=== PATIENT | female | born 1975 | race Caucasian/White ===

== ENCOUNTER 2018-03-05 13:21 | Outpatient (CLI) | payer MEDICAID | END 2018-03-05 13:22 | disposition home or self-care (01) | LOC: BICULT 13:21 | PROVIDERS: ATTEND Nurse Practitioner Women's Health | DX: R10.2 Pelvic and perineal pain (principal); N83.291 Other ovarian cyst, right side | CPT/HCPCS: 76856 ==

== ENCOUNTER 2019-03-30 08:20 | Day surgery (SDC) | payer BC ==
[2019-03-29 15:53] VITALS: BMI 21.6
--- NOTE | 2019-03-30 07:27 | HP ---
DATE OF PLANNED PROCEDURE: 03/30/2019. PROCEDURE TO BE PERFORMED: Robotic-assisted total laparoscopic hysterectomy with right salpingo-oophorectomy. PREOPERATIVE DIAGNOSES: Menorrhagia, right lower quadrant pain. HISTORY OF PRESENT ILLNESS: Ms. Jenny Garner is a 43-year-old referred by Dr. Noel for heavy painful periods for consult regarding hysterectomy. The patient gives a long history of anemia as well as a history of recovering from alcohol abuse. She recently stopped smoking. She reports heavy painful cycles. She passes clots, has terrible cramps and has gone to the emergency department multiple times on her period because she was worried she would pass out. The patient also complains of intermittent right lower quadrant pain off and on for the last 2 years. She does give history of a right ovarian cyst approximately 2 years ago that was not seen on her most recent exam. She reports using oral contraceptive pills and Depo-Provera in the past for her symptoms and that did not help much. She now requests definitive management with hysterectomy and right salpingo- oophorectomy. PAST MEDICAL HISTORY: ADHD, history of alcohol abuse. PAST SURGICAL HISTORY: Appendectomy, left ovarian cystectomy, tubal ligation. SOCIAL HISTORY: Former smoker, history of alcohol use. No drug use. FAMILY HISTORY: Noncontributory. OBSTETRICAL HISTORY: Significant for one vaginal delivery. GYNECOLOGIC HISTORY: Significant for heavy painful periods once a month. No history of abnormal Pap smear. Treated for Trichomonas recently with a negative repeat testing. REVIEW OF SYSTEMS: Negative except per HPI. MEDICATIONS: 1. Naltrexone 50 mg once a day. 2. Propranolol 10 mg three times a day. 3. Quetiapine 300 mg once daily in the evening. ALLERGIES: NO KNOWN DRUG ALLERGIES. PHYSICAL EXAMINATION: VITAL SIGNS: 5 feet 8 inches, weight 138 pounds, BMI 21, blood pressure 104/60, pulse 70, respiratory rate 18, O2 saturation 98%. GENERAL: No acute distress. Alert and oriented. LUNGS: Nonlabored breathing. HEENT: Grossly normal. ABDOMEN: Soft, nontender. No masses. No hepatosplenomegaly. : Normal external female genitalia. Normal vaginal mucosa. Normal-appearing cervix. Uterus has no masses, it is in normal size, nontender. Adnexa are normal. No masses or tenderness noted. EXTREMITIES: No swelling. MUSCULOSKELETAL: No gross deformity. SKIN: No rash. NEUROLOGIC: Grossly intact. Mental status appropriate, mood and affect. DIAGNOSTIC STUDIES: Endometrial biopsy with no hyperplasia or malignancy. Pelvic ultrasound, uterus is without fibroids or masses. Normal appearing ovaries. Retroverted uterus. ASSESSMENT AND PLAN: Ms. Jenny Garner is a 43-year-old G1 with a long history of menorrhagia and dysmenorrhea who requests definitive management with hysterectomy as well as a right salpingo-oophorectomy for chronic right lower quadrant pain. The patient understands risks and benefits of surgery. She understands risks are to include, but are not limited to, bleeding, infection, damage to intraabdominal organs, possible conversion to laparotomy, possible inability to fully diagnose and treat all conditions at the time of surgery, possible need for future medical and/or surgical management. The patient also understands that with the right salpingo-oophorectomy she may or may not have resolution of her right lower quadrant pain. However, she desires to proceed with removing the ovary on that side. The patient's questions have been answered to her satisfaction. She desires to proceed with the procedure as listed above. We also discussed On-Q pump and Sprix intranasal Toradol for postoperative pain control and she has received information on both of these. Job ID: [id number] MTDD
[2019-03-30] MEDS ORDERED: CeleCOXIB 100 MG CAP ONE (08:44)
[2019-03-30] MEDS ORDERED: Famotidine/PF 20 mg/2ml Vial ONE (08:44)
[2019-03-30] MEDS ORDERED: Gabapentin 300 MG CAP ONE (08:44)
[2019-03-30 09:06] LABS: #Basophils 0.1 thou/uL (0.0-0.2); #Eosinphils 1.4 thou/uL (0.0-0.7); #Monocytes 0.9 thou/uL (0.11-0.59); #Neutrophils 5.7 thou/uL (1.40-6.50); %Basophils 0.6 % (0.0-1.0); %Lymphocytes 19.7 % (21.0-51.0); %Monocytes 9.1 % (0.0-10.0); %Neutrophils 56.7 % (42.0-75.0); Hemoglobin 13.1 g/dL (12.0-16.0); Mean Corpuscular HGB CONC 34.1 g/dL (32.0-36.0); Mean Corpuscular Hemoglobin 29.9 pg (27.0-31.0); Mean Corpuscular Volume 87.5 fL (78.0-98.0); Mean Platelet Volume 8.1 fL (7.4-10.4); Platelet Count 297 thou/uL (130-400); RBC Distribution Width 12.5 % (11.5-14.5); Red Blood Cell (RBC) Count 4.39 mill/uL (4.20-5.40)
[2019-03-30] MEDS ORDERED: Fentanyl 100 MCG/2 ML VIAL ONE ×3 (09:53→13:24)
[2019-03-30] MEDS ORDERED: Bupivacaine HCl 0.5%/Epinephrine 1:200,000/PF 30 ml Vial ONE (09:56)
[2019-03-30] MEDS ORDERED: Promethazine HCl 25 MG/ML VIAL IM PRN ×2 (10:12→12:06)
[2019-03-30] MEDS ORDERED: Promethazine HCl 25 MG/ML VIAL SLOW IVP PRN (10:12)
[2019-03-30] MEDS ORDERED: Ondansetron HCl/PF 4 MG/2 ML Vial IVP PRN (10:12)
[2019-03-30] MEDS ORDERED: Ropivacaine 0.2% 550 ML 750 ML NERVE BLCK SCH (10:30)
[2019-03-30] MEDS ORDERED: Ropivacaine HCl/PF 750 ML in Premix Bag 1 BAG NERVE BLCK SCH (10:45)
[2019-03-30] MEDS ORDERED: metroNIDAZOLE 500 MG/100 ML BAG ONE (11:17)
[2019-03-30] MEDS ORDERED: Bisacodyl 10 MG SUPP PR PRN (12:06)
[2019-03-30] MEDS ORDERED: HYDROcodone/Acetaminophen 5/325 mg Tablet PO PRN (12:06)
[2019-03-30] MEDS ORDERED: diphenhydrAMINE 25 MG CAP PO PRN (12:06)
[2019-03-30] MEDS ORDERED: Ondansetron PF 4 MG/2 ML Vial IVP PRN (12:06)
[2019-03-30] MEDS ORDERED: Zolpidem Tartrate 5 MG TAB PO PRN (12:06)
[2019-03-30] MEDS: Sodium Chloride 0.9% 1,000 ML IV SCH ×2 (14:52→21:50)
--- NOTE | 2019-03-30 15:10 | OP ---
DATE OF PROCEDURE: 03/30/2019 PREOPERATIVE DIAGNOSES: 1. Menorrhagia. 2. Dysmenorrhea. 3. Right lower quadrant pain. POSTOPERATIVE DIAGNOSES: 1. Menorrhagia. 2. Dysmenorrhea. 3. Right lower quadrant pain. PROCEDURES PERFORMED: Robotic-assisted total laparoscopic hysterectomy with right salpingo-oophorectomy. CERTIFIED FRAUD EXAMINER: Ting Coles PA-C COMPLICATIONS: None. ESTIMATED BLOOD LOSS: Less than 25 mL. URINE OUTPUT: Approximately 100 mL. ANESTHESIA: GETA. OPERATIVE FINDINGS: 1. Normal-appearing cervix and vagina. Uterus sounds to 6 cm. Laparoscopic findings with normal-appearing ovaries bilaterally. Absent left fallopian tube. Edematous right fallopian tube. Pelvic adhesions with ovaries adhered to the uterus, pelvic sidewall, and cul-de-sac. 2. Igyc-Ymxv-[id number] findings. 3. Small serosal fibroids. DESCRIPTION OF PROCEDURE: The patient was taken back to the OR with IV fluids running. When she was in the OR, she was placed in dorsal supine position and anesthesia was obtained. Once the patient was asleep, she was placed in low dorsal lithotomy position. The abdomen and vagina were prepped and draped in normal fashion for gynecologic surgery. The patient received Ancef as well as Flagyl IV for intraoperative prophylaxis. The surgeons were gowned and gloved after the patient was prepped and draped and attention was turned to the vagina. A Rosas catheter was placed into the bladder and drained approximately 400 mL of urine. The Yoel syringe was then attached to the tip of the Rosas for bladder manipulation if needed during the case. The cervix was visualized after placing an operative speculum. The anterior lip of the cervix was grasped in the cervix and the uterus was sounded to 6 cm. A [employer] manipulator was assembled with a 6-cm tip and a 3.5 cm cervical cup and placed into the uterus and vagina in normal fashion. After the manipulator was placed, the surgeon's gloves were changed and attention was turned to the laparoscopic portion of the procedure. Beginning at the supraumbilical fold, local anesthesia was placed underneath the skin. A 12-mm skin incision was made with a scalpel. The Veress needle was placed through the skin incision and the abdomen was then insufflated without difficulty. The Veress needle was then removed and a 12-mm trocar was placed through this incision without difficulty. The laparoscope was then placed through this port. The patient was placed in Trendelenburg and the above findings were noted. Under direct visualization using similar technique, a right upper quadrant 11-mm port was placed and a right and left lower quadrant 8-mm robotic trocars were placed. After all 4 trocars were placed, the robot was docked to the patient's bedside. Monopolar scissors and bipolar fenestrated graspers were directed into the operating field under direct visualization. The pelvis was examined with the above finding noted. Beginning on the patient's left side, adhesions were taken down between the ovary and the uterus and the ovary and cul-de-sac. The filmy adhesions were easily dissected and the anatomy to the left adnexal was restored. There was no left fallopian tube identified. The left utero-ovarian ligament was cauterized and transected, allowing the left ovary to fall away to the pelvic sidewall. The round ligament on the patient's left side was cauterized, transected, and divided into anterior and posterior leaves. The anterior and posterior leaves were dissected down towards the level of the uterine artery. The uterine artery was skeletonized. The bladder reflection was easily identified. The bladder was noted to be well away from the planned colpotomy site. In a series of thin layers, the anterior leaf was taken down to create a bladder flap and the bladder was dissected away from the planned colpotomy site. The uterine artery on the patient's left side was then cauterized and transected with hemostasis noted. Attention was then turned to the contralateral side. The right fallopian tube was identified, grasped, and elevated within the pelvic sidewall. This was cauterized and then transected. It was removed from the operative field and sent for pathologic review. The right ovary with a series of adhesions between the uterus, cul-de-sac, and bowel. These filmy adhesions were disrupted and the anatomy was restored. Once the ovary moved freely, the IP ligament was identified, it was noted to be well away from the right ureter. The IP ligament was then cauterized and transected. The right ovary than fell away from the pelvic sidewall and remained to the uterine specimen. The round ligament on the patient's right side was then cauterized and transected. It was divided into anterior and posterior leaves. It was dissected down towards the level of the uterine artery. The bladder flap was then began on the patient's right side and met with the contralateral dissection. The bladder was gently dissected away from the future colpotomy site. The uterine artery on the patient's right side was cauterized and transected with hemostasis noted. Filmy adhesions around the uterosacral ligaments were taken down. The colpotomy then began using monopolar scissors and was completed circumferentially with good visualization and without difficulty. After the colpotomy was completed, the uterine and right ovary specimen were retracted into the vagina and remained there for pneumoperitoneum during the case. The vaginal cuff was inspected and irrigated. Any small areas of bleeding were controlled with Bovie cauterization. The vaginal cuff was then reapproximated with Stratafix suture in a running fashion and closed in 2 layers. After the vaginal cuff was closed, the surgical pedicle sites and vaginal cuff were copiously irrigated and suctioned dry. A small area of bleeding was noted between the left pelvic sidewall and left ovary. This bleeding was controlled with Bovie cauterization. This area was irrigated again and suctioned with no further bleeding noted. A small area of bleeding was noted near the left corner of the vaginal cuff. This area was closely examined and cautery was applied with resolution of the bleeding and hemostasis. A layer of Xuan was applied over the vaginal cuff in between the left ovary and pelvic sidewall. The pressure was dropped down to 4-6 mmHg, and over a period of observation, no bleeding was noted. An ON-Q catheter tip was then placed through the skin under direct visualization and the catheter was placed down into the pelvis. It was primed and noted to be working well. All instruments were removed. The ports were removed and the gas was released from the abdomen. A vaginal sponge stick was used to examine the vagina with no bleeding noted. After the gas was released from the abdomen, the supraumbilical port site was closed at the fascial layer with Vicryl suture. All 4 skin incisions were closed with Monocryl suture and dressed with Dermabond dressing. The patient tolerated the procedure well and there were no complications. Job ID: [id number]
[2019-03-30] MEDS: Propranolol 10 MG TAB PO SCH ×2 (15:15→21:17)
[2019-03-30] MEDS: Simethicone Chewable 80 MG TAB PO PRN ×2 (15:17→20:08)
[2019-03-30] MEDS: HYDROcodone/Acetaminophen 5/325 mg Tablet PO PRN ×2 (15:48→20:08)
[2019-03-30] MEDS: Acetaminophen 1,000 MG in Premix Bag 1 BAG IVPB SCH (16:57)
[2019-03-30] MEDS ORDERED: Ketorolac Tromethamine 30 MG/ML VIAL IVP SCH ×2 (18:00→21:00)
[2019-03-30] MEDS: Ibuprofen 800 MG TAB PO SCH (21:17)
[2019-03-31] MEDS: HYDROcodone/Acetaminophen 5/325 mg Tablet PO PRN ×2 (00:49→06:06)
[2019-03-31] MEDS: Acetaminophen 1,000 MG in Premix Bag 1 BAG IVPB SCH ×2 (01:52→08:00)
[2019-03-31] MEDS: Sodium Chloride 0.9% 1,000 ML IV SCH ×2 (05:28→08:01)
[2019-03-31] MEDS: Ibuprofen 800 MG TAB PO SCH (05:31)
[2019-03-31 06:26] LABS: Hemoglobin 11.2 g/dL (12.0-16.0); Mean Corpuscular HGB CONC 33.3 g/dL (32.0-36.0); Mean Corpuscular Hemoglobin 29.8 pg (27.0-31.0); Mean Corpuscular Volume 89.3 fL (78.0-98.0); Mean Platelet Volume 8.3 fL (7.4-10.4); Platelet Count 269 thou/uL (130-400); RBC Distribution Width 12.6 % (11.5-14.5); Red Blood Cell (RBC) Count 3.77 mill/uL (4.20-5.40); White Blood Cell (WBC) Count 13.4 thou/uL (4.8-10.8)
[2019-03-31] MEDS ORDERED: Ibuprofen 800 MG TAB PO SCH (08:00)
[2019-03-31 08:02] VITALS: BP 123/65; TEMP 98.5
[2019-03-31] MEDS ORDERED: NALTREXONE HCL 50 MG PO SCH (09:00)
--- NOTE | 2019-03-31 14:09 | PDOC.EVN ---
Event Note - Event Note Event Note: Pt s/p RATLH with right oophorectomy and bilateral salpingectomy. PT is doing very well on post op day one. Pain is well controlled. She has been up and ambulating. She is urinating normally and starting to pass gas. No vaginal bleeding. She ate dinner last night and breakfast this morning. No leg pain, chest pain or shortness of breath. No concerns with her incisions. She has an On-Q pump in place and is concerned because it was leaking slightly on the dressing. PT VSS, Afebrile. PT resting comfortable in bed, dressed and in full make up. Normal respiratory effort. Abdomen, soft with minimal tenderness to palpation. Incsions dry and intact. OnQ pump in place. No active leaking noted. Normal LE appearance without tenderness or swelling. Pt is ambulatory in room and neurologically at baseline. Her H&H is stable. Pathology is pending at this time. PT POD1 s/p RATLH R oophorectomy Olvin salpingectomy. Pt doing well in post op setting. Pain well controlled. Plan to d/c patient this am with On Q pump. Home care instructions and removal discussed. No leaking noted at this time. Rx for norco and nasal toradol have been sent. No Additional NSAIDs advised. She will follow up in office in 2 weeks. Discharge planning discussed with patient and all questions answered.
== END 2019-03-31 09:35 | disposition home or self-care (01) ==
LOC: SDC 08:20 → 3SW 12:07 → SDC 03-31 09:35
PROVIDERS: ATTEND Obstetrics & Gynecology
PROC: 0UT54ZZ Resection of Right Fallopian Tube, Percutaneous Endoscopic Approach (ICD-10-PCS; principal; 2019-03-30)
PROC: 0UT04ZZ Resection of Right Ovary, Percutaneous Endoscopic Approach (ICD-10-PCS; principal; 2019-03-30)
PROC: 0UT94ZZ Resection of Uterus, Percutaneous Endoscopic Approach (ICD-10-PCS; principal; 2019-03-30)
DX: N72 Inflammatory disease of cervix uteri (principal); D25.2 Subserosal leiomyoma of uterus; N83.01 Follicular cyst of right ovary; N73.6 Female pelvic peritoneal adhesions (postinfective); F10.11 Alcohol abuse, in remission; F90.9 Attention-deficit hyperactivity disorder, unspecified type; G89.29 Other chronic pain; R10.31 Right lower quadrant pain; Z87.891 Personal history of nicotine dependence; Z79.899 Other long term (current) drug therapy; Z98.890 Other specified postprocedural states
CPT/HCPCS: 36415; 84702; 85025; 85027; 86850; 86900; 86901; 88307; J0131; J0670; J0690; J1885; J2795; J3010; S0028

== ENCOUNTER 2021-12-19 12:31 | Outpatient (CLI) | payer BC | END 2021-12-19 12:32 | disposition home or self-care (01) | PROVIDERS: ATTEND Internal Medicine | DX: R00.2 Palpitations (principal) | CPT/HCPCS: 93225; 93226 ==